=== PATIENT | female | born 1975 | race Caucasian/White ===

== ENCOUNTER 2024-07-08 18:20 | Emergency (ER) | payer SELFPAY ==
[2024-07-08 18:23] VITALS: BP 160/73; PULSE 93; RESP 20; TEMP 36.6; O2SAT 98
--- NOTE | 2024-07-08 18:50 | RAD_ITS ---
STUDY: X-RAY - RIGHT KNEE REASON FOR EXAM: Female, 49 years old. Fall TECHNIQUE: 4 view(s) of the knee. COMPARISON: None. FINDINGS: Normal visualized distal femur. Normal visualized proximal tibia and fibula. Normal proximal tibiofibular articulation. There is no demonstrated fracture. Normal medial femorotibial compartment. Normal lateral femorotibial compartment. Normal patellofemoral articulation. There is no demonstrated joint effusion. The soft tissue structures are unremarkable. RAD/Knee 4 or More Views IMPRESSION: Normal x-ray examination of the knee. Electronically Signed: Anand Culver MD at 19:57 EDT ,
--- NOTE | 2024-07-08 19:50 | ED.VIS.LOWEX ---
HPI History of Present Illness Chief Complaint: Lower Extremity Injury Informant: patient Narrative Narrative: 49-year-old female states she was at a snf tour and she was walking down some steps and all she did was take a step with her right foot and had sudden onset of pain with a feeling of a pop or crack in the back of her right knee. Pain is more laterally. No numbness or weakness anywhere, just very difficult to put any weight on it which she states I cannot do. She states in the last week or 2, she has had an occasional sensation of something similar with walking, but not nearly to the degree of what it was tonight. [facility] Medical History Migraines Depression Hypertension Home Medications ?Medication ?Instructions ?Recorded ?Last Taken ?Type naproxen 500 mg tablet 500 mg PO BID PRN pain #14 tabs 07/08/24 Unknown Rx tramadol 50 mg tablet 50 mg PO Q6H PRN pain 2 days #8 07/08/24 Unknown Rx tabs Allergy/AdvReac Type Severity Reaction Status Date / Time cefuroxime (From Ceftin) Allergy Mild Hives Verified 07/08/24 18:22 codeine Allergy Mild Hives Verified 07/08/24 18:22 Social History Smoking Status: Never smoker ROS ROS ED Constitutional Constitutional ED: Denies chills or fever(s) Musculoskeletal Musculoskeletal: Reports extremity pain; Denies neck pain Integumentary Denies Abrasions, rash or wounds Neurologic Neurologic: Denies paresthesias or weakness EXAM Physical Exam Const Vital Signs: 07/08/24 18:23 Temperature 97.8 F Temperature Source Temporal Pulse Rate 93 Respiratory Rate 20 H Blood Pressure 160/73 H Blood Pressure Mean 102 Pulse Ox 98 Oxygen Delivery Method Room Air Positive well nourished and well developed General Appearance ED: well developed and NAD Neck full ROM and supple Back/Spine normal ROM and normal to inspection Extremity Extremity Narrative: Limited range of motion of the right knee but she is able to move it especially with passive assistance. Extensor mechanism is intact although painful for her to do. There is no bony tenderness throughout the knee, but she is very tender at the insertion of the lateral hamstring, area of the tendons of semimembranosus/semitendinosus. She is not tender at the IT band or its insertion or the fibular head. There is no knee effusion. There is no peripheral edema. She is neurovascular intact distally with palpable pulse. Neuro oriented x3, no focal motor deficits and no sensory deficits noted Sensorium / Orientation: alert Psych mental status grossly normal and thought process normal Skin no wounds Rashes: no rashes MDM MDM MDM Narrative Medical decision making narrative: 4 view x-ray series of the right knee are normal on my interpretation. I suspect this is a muscular/tendon injury, when I stressed the ligaments of the knee she does not have significant discomfort and there is no laxity. Anterior and posterior drawer signs are negative. Patient will be placed in an Laz wrap, given crutches, something for pain and follow-up. She is comfortable with that plan. Discharge Plan Triage Chief Complaint: Lower Extremity Injury ED Provider: Christian Moses Dx/Rx/DC Orders Clinical Impression: Muscle strain of right knee Instructions: ED Knee Pain of Uncertain Cause, ED Muscle Strain, Extremity Prescriptions: New tramadol 50 mg tablet 50 mg PO Q6H PRN (Reason: pain) 2 Days Qty: 8 0RF naproxen 500 mg tablet 500 mg PO BID PRN (Reason: pain) Qty: 14 0RF Primary Care Provider: Jaciel Jackson,Out of Referrals: Malachi Stevenson, [Med Staff - Active Staff] - 10-14 Days if not better (or your own doctor/ortho) [facility] ,Out of [Primary Care Provider] - Print Language: [place]ijani Disposition Disposition: Home, Self Care
[2024-07-08] MEDS: Naproxen 500 MG Tablet PO (20:04)
[2024-07-08] MEDS: traMADol 50 MG Tablet PO (20:05)
== END 2024-07-08 20:47 | disposition home or self-care (01) ==
PROVIDERS: Emergency Provider Emergency Medicine; Visit Provider Emergency Medicine
DX: S76.111A Strain of right quadriceps muscle, fascia and tendon, initial encounter (principal); X58.XXXA Exposure to other specified factors, initial encounter; Y92.149 Unspecified place in prison as the place of occurrence of the external cause; I10 Essential (primary) hypertension
CPT/HCPCS: 73564; 99283